=== PATIENT | female | born 1955 | race Caucasian/White ===

== ENCOUNTER 2020-06-12 18:59 | Inpatient (IN) | payer OTHER ==
[~2020-06-12] VITALS: Ht 152.4 cm; Wt 73.5 kg
[2020-06-12 19:13] VITALS: BP 102/52
[2020-06-12] MEDS ORDERED: WELLBUTRIN XL300 MG PO (19:17)
[2020-06-12] MEDS ORDERED: ZOLOFT100 MG PO (19:17)
[2020-06-12] MEDS ORDERED: CLONAZEPAM 0.50.5 M1 PO (19:17)
[2020-06-12] MEDS ORDERED: BACTRIM DS TAB1 EAC1 PO (19:18)
[2020-06-12 19:20] LABS: URINE BILIRUBIN NEGATIVE (Negative); URINE BLOOD TRACE (Negative); URINE CLARITY CLEAR; URINE COLOR YELLOW; URINE GLUCOSE-RANDOM NEGATIVE (Negative); URINE KETONES NEGATIVE (Negative); URINE LEUKOCYTES-REFLEX TRACE (Negative); URINE NITRITE-REFLEX POSITIVE (Negative); URINE PROTEIN NEGATIVE (Negative); URINE SPECIFIC GRAVITY 1.015 (1.005-1.030); URINE UROBILINOGEN 0.2 E.U./dl (0.2-1.0)
[2020-06-12 19:32] LABS: MUCUS None Seen strn/LPF (None Seen); SQUAMOUS >10 Many /LPF (0-3); URINE RBC 0-2 Rare /HPF (0-2); URINE WBC-REFLEX 6-15 Few /HPF (0-5)
[2020-06-12 19:32] LABS: HEMATOCRIT 33.1 % (37.0-47.0); HEMOGLOBIN 11.6 gm/dL (12.0-15.0); MCHC 35.1 g/dL (28.0-37.0); MCV 85.5 fL (80.0-100.0); MPV 9.5 fl. (7.2-11.1); NUCLEATED RBCS 0 /100WBC; PLATELET COUNT* 88 thou/uL (150-400); RBC 3.88 mil/uL (4.20-5.00); RDW-CV 14.2 % (10.5-14.5)
[2020-06-12 19:33] LABS: BACTERIA-REFLEX >30 Many /HPF (None Seen); CASTS None Seen /LPF (None Seen); CRYSTALS None Seen /LPF (None Seen)
[2020-06-12 19:41] LABS: CALCIUM 7.7 mg/dL (8.5-10.1); CREATININE 1.5 mg/dL (0.6-1.3); POTASSIUM 3.2 mmol/L (3.5-5.1)
[2020-06-12 19:45] LABS: ALBUMIN 2.8 g/dL (3.4-5.0); TOTAL BILIRUBIN 1.1 mg/dL (<0.1-1.0); TOTAL PROTEIN 5.6 g/dL (6.4-8.2)
[2020-06-12 20:20] LABS: ABSOLUTE LYMPHOCYTES 0.5 thou/uL (0.8-5.3); ABSOLUTE MONOCYTES 0.3 thou/uL (0.0-1.2); ABSOLUTE NEUTROPHILS 5.2 thou/uL (1.6-8.1); ATYPICAL LYMPHS 2 %
[2020-06-12 20:21] LABS: PLATELET ESTIMATE DECREASED
--- NOTE | 2020-06-12 23:30 | NUR ---
LEVOPHED TITRATED TO MAINTAIN BLOOD PRESSURE MAP ABOVE 65. CURRENTLY TITRATED TO 8MCGS/MIN
[2020-06-12 23:46] VITALS: BP 110/60
--- NOTE | 2020-06-12 23:47 | NUR ---
PERMISSION TO GIVE INFORMATION TO FAMILY MEMBER, LI (SON). [phone] PERMISSION TO GIVE INFORMATION TO FAMILY MEMBER, JOE TARIK [phone]
[2020-06-13] VITALS (78 sets, daily range): BP systolic 79–117; BP diastolic 40–71
--- NOTE | 2020-06-13 07:59 | NUR ---
RECEIVED REPORT FROM STRAND BUNCHER FINE WIRENEVA VILLALTA. PATIENT BROUGHT TO UNIT AROUND 0015. PATIENT ORIENTED TO UNIT, ROOM, BED, CALL-LIGHT, AND HOSPITAL POLICY. ASSESSMENTS COMPLETED CHARTED. CARDIAC MONITORING IN PLACE. PATIENT ON LEVOPHED DRIP, TITRATED TO MAINTAIN MAP ABOVE 65. BED LOCKED AND IN LOWEST POSITION. FALL PRECAUTIONS IN PLACE FOR PATIENT SAFETY. CLWR.
[2020-06-13 08:25] LABS: ALBUMIN 2.1 g/dL (3.4-5.0); CALCIUM 6.6 mg/dL (8.5-10.1); CREATININE 1.5 mg/dL (0.6-1.3); DIRECT BILIRUBIN 1.1 mg/dL (<0.1-0.3); MAGNESIUM 1.1 mg/dL (1.8-2.4); PHOSPHORUS* 2.6 mg/dL (2.5-4.9); POTASSIUM 3.5 mmol/L (3.5-5.1); TOTAL BILIRUBIN 1.4 mg/dL (<0.1-1.0); TOTAL PROTEIN 4.6 g/dL (6.4-8.2)
[2020-06-13 08:53] LABS: APTT 37.3 Seconds (25.0-31.3); INR 1.3
--- NOTE | 2020-06-13 09:34 | EKG ---
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
--- NOTE | 2020-06-13 09:57 | NUR ---
7330 ASSUMED CARE OF PATIENT. PLEASE SEE DOCUMENTED ASSESSMENT.PT C/O BACK AND GENERALIZED PAIN. DR FAUSTIN TO SEE PATIENT.
[2020-06-13 14:21] LABS: MAGNESIUM 2.7 mg/dL (1.8-2.4); POTASSIUM 4.3 mmol/L (3.5-5.1)
--- NOTE | 2020-06-13 14:57 | NUR ---
ICU rounds: IV fluids and ABX. GI w/up for elevated LFTs. Pain mgmt. Pt is A&O. Resides at home with her girlfriend. Independent. No DME. No hx of HH or SNF. Med Assist to screen for [facility]. No needs anticipated. Following
--- NOTE | 2020-06-13 14:59 | NUR ---
ICU rounds: Iv fluids and abx. Pain management. Pt is A&O. Resides at home with her girlfriend. Independent. No DME. No hx of HH or SNF. Goal is home at dc. Med Assist to eval for [facility]. No needs anticipated.
--- NOTE | 2020-06-13 18:40 | NUR ---
PATIENT NOT PROGRESSING TOWARDS GOALS. LEVOPHED UNABLE TO BE TITRATED SIGNIFICANTLY. ON ROOM AIR. AFEBRILE.POOR APPETITE BUT TAKING FLUIDS. VAUGHN PLACED THIS MORNING FOR RETENTION. SISTER HAS VISITED.
--- NOTE | 2020-06-13 23:31 | NUR ---
RECEIVED REPORT AND ASSUMED CARE AT 1900. TEMP ELEVATED OTHERWISE VSS, ICU MONITORING IN PLACE. PT REPORTS PAIN/ NAUSEA/ TEMP 102.3. PRN MEDICATION ADMIN PER ORDERS. TEMP RECHECK 100.7 AND THEN 99.2. ASSESSMENT COMPLETE CHARTED. BED LOCKED IN LOWEST POSITION, CALL LIGHT WITHIN REACH, BED ALARM ON.
[2020-06-14] VITALS (80 sets, daily range): BP systolic 81–118; BP diastolic 40–88
[2020-06-14 04:52] LABS: HEMATOCRIT 30.4 % (37.0-47.0); HEMOGLOBIN 10.5 gm/dL (12.0-15.0); MCH 29.8 pg (26.0-34.0); MCHC 34.6 g/dL (28.0-37.0); MCV 86.1 fL (80.0-100.0); MPV 10.7 fl. (7.2-11.1); RBC 3.53 mil/uL (4.20-5.00); RDW-CV 15.4 % (10.5-14.5); WBC 14.3 thou/uL (4.0-11.0)
[2020-06-14 05:18] LABS: CREATININE 0.9 mg/dL (0.6-1.3); MAGNESIUM 2.2 mg/dL (1.8-2.4); POTASSIUM 4.2 mmol/L (3.5-5.1); TOTAL BILIRUBIN 0.6 mg/dL (<0.1-1.0); TOTAL PROTEIN 4.8 g/dL (6.4-8.2)
--- NOTE | 2020-06-14 17:25 | NUR ---
PATIENT NOT PROGRESSING WELL TOWARDS GOALS. UNABLE TO WEAN LEVOPHED AT ALL THIS SHIFT. INCREASED O2 TO 4 LITERS DUE TO INCREASED SHORTNESS OF BREATHING, TACHYPNIA, AND DROP IN SATS TO 85-87% SUSTAINED. PATIENT HAS PAIN MOST OF SHIFT, STARTING TO BECOME BETTER CONTROLLED WITH SCHEUDLED TRAMADOL. REMAINS FEBRILE BUT SLOWLY DECREASING. FRIEND VISITED TODAY AND SON CALLED FOR UPDATE. PATIENT UP IN CHAIR EATING DINNER AT THIS TIME. POOR APPETITE MOST OF TODAY. BED IN LOWEST POSITION, CALL LIGHT IN REACH, WALL WORKER IN PLACE.
[2020-06-14 20:53] LABS: PCO2 31.1 mmHg (35.0-45.0); pH 7.326 (7.340-7.450)
[2020-06-14 20:55] LABS: PO2 57.5 mmHg (75.0-100.0)
[2020-06-15] VITALS (96 sets, daily range): BP systolic 73–143; BP diastolic 39–107
[2020-06-15 00:33] LABS: CALCIUM 6.2 mg/dL (8.5-10.1); CREATININE 0.9 mg/dL (0.6-1.3); MAGNESIUM 1.8 mg/dL (1.8-2.4); POTASSIUM 3.9 mmol/L (3.5-5.1)
--- NOTE | 2020-06-15 00:34 | NUR ---
PATIENT'S OXYGEN DEMAND INCREASING WELL RESPIRATORY RATE. DR. LOPEZ NOTIFIED, ORDERS RECEIVED FOR ABG AND CHEST XRAY. RESULTS COMMUNICATED TO HER, WELL UPDATE ON PTS WORSENING RESPIRATORY STATUS. ORDERS TO INTUBATE RECEIVED AND CARRIED OUT BY DR. SUE. SINCE INTUBATION, HR HAS BEEN 140-150'S, DR. LOPEZ NOTIFIED AGAIN. ORDERS RECEIVED FOR DIGOXIN IVPUSH ONE TIME. ADMINISTERED PER ORDERS. PATIENT RESTING COMFORTABLY WITH SEDATION INFUSING.
[2020-06-15 01:00] LABS: BE -14.4 mmol/L (-2 to +3); PO2 89.3 mmHg (75.0-100.0)
[2020-06-15 01:02] LABS: PCO2 65.9 mmHg (35.0-45.0); pH 7.022 (7.340-7.450)
[2020-06-15 02:41] LABS: BE -10.1 mmol/L (-2 to +3); PCO2 38.9 mmHg (35.0-45.0); PO2 70.7 mmHg (75.0-100.0)
[2020-06-15 02:42] LABS: pH 7.245 (7.340-7.450)
[2020-06-15 06:53] LABS: HEMATOCRIT 28.5 % (37.0-47.0); HEMOGLOBIN 9.8 gm/dL (12.0-15.0); MCH 29.8 pg (26.0-34.0); MCHC 34.4 g/dL (28.0-37.0); MCV 86.5 fL (80.0-100.0); MPV 9.6 fl. (7.2-11.1); RBC 3.3 mil/uL (4.20-5.00); RDW-CV 15.5 % (10.5-14.5); WBC 16.8 thou/uL (4.0-11.0)
[2020-06-15 07:10] LABS: ALBUMIN 1.6 g/dL (3.4-5.0); MAGNESIUM 1.8 mg/dL (1.8-2.4); POTASSIUM 4.2 mmol/L (3.5-5.1); TOTAL BILIRUBIN 0.6 mg/dL (<0.1-1.0); TOTAL PROTEIN 4.4 g/dL (6.4-8.2)
[2020-06-15 07:14] LABS: CALCIUM 5.7 mg/dL (8.5-10.1)
--- NOTE | 2020-06-15 07:32 | NUR ---
PATIENT PROGRESSING TOWARDS GOALS: PATIENT REMAINS ON VENT, SETTINGS PER PULM. PATIENT OPENING EYES SPONTANEOUSLY, NOT ATTEMPTING TO PULL AT TUBES. OBEYING COMMANDS AND APPEARS COMFORTABLE. UPDATE ON PATIENT STATUS GIVEN TO SON-LI. BP STABLE ON LEVOPHED.
--- NOTE | 2020-06-15 11:04 | CON ---
[address] [address] CONSULTATION Name: SAUNDRA ROMANO Room: [address] ADM IN M.R.#: [id number] Admission: 06/12/20 Attend Phys: Lanre Cuevas MD Discharge: Date of : 57 Report #: [id number] THIS REPORT FOR: //name// cc: Jean Carlos Wakefield MD, William MD ~ THIS REPORT FOR: //name// CC: Lanre Wakefield DATE OF SERVICE: 06/15/2020 CARDIOLOGY CONSULTATION HISTORY OF PRESENT ILLNESS: The patient is a 65-year-old white female who I was asked to see in the hospital today after she was noted to be tachycardic. The history is obtained from the chart. Unfortunately, there are no family members available. The patient has never been here to [place] before. She is currently intubated and sedated. According to the chart, the patient was brought to the Emergency Room 3 days ago. She apparently was diagnosed with a UTI 2 weeks ago and was prescribed Bactrim. On the day of admission; however, she noticed some back and abdominal discomfort and some nausea. She was admitted to a monitored bed. Because of respiratory insufficiency, the patient was electively intubated last night and placed on the ventilator. Because of low blood pressure, the patient is on IV Levophed. Because of tachycardia, I was asked to see her for further evaluation and treatment. At this time, the patient denies any chest pain, nausea, or lightheadedness. PAST MEDICAL HISTORY: She apparently has had previous appendectomy and cholecystectomy. MEDICATIONS: On admission included sertraline, Wellbutrin, clonazepam, and she has been on Bactrim. ALLERGIES: SHE HAD ALLERGY TO AMOXICILLIN. FAMILY HISTORY: Noncontributory. REVIEW OF SYSTEMS: No history of stroke, asthma, GI bleeding, liver disease, kidney disease or cancer. PHYSICAL EXAMINATION: GENERAL: Revealed a middle-aged female lying in bed. She is on a ventilator. She was awake. VITAL SIGNS: On IV Levophed were only 90 systolic, pulse is 110 and regular. temperature is [address]. [place] [address] CONSULTATION Name: SAUNDRA ROMANO Room: [address]#: [id number] Admission: 06/12/20 Attend Phys: Lanre Cuevas MD Discharge: Date of : 57 Report #: [id number] HEENT: She was anicteric. Conjunctivae are pink. Mucous membranes are moist. CHEST: Clear to auscultation. CARDIOVASCULAR: Regular, tachycardia. No significant murmurs. ABDOMEN: Soft. EXTREMITIES: Had no edema. SKIN: Cool and dry. NEUROLOGIC: Nonfocal. IMAGING STUDIES: Her ECG showed what appears to represent sinus tachycardia with a left bundle branch block. Her workup since admission, the patient had a portable chest x-ray on admission 3 days ago that showed normal heart size and clear lung diego. LABORATORY DATA: Sodium 138, BUN 13, creatinine 1.0. Her alkaline phosphatase is 212, SGPT 71, GGTP 389, bilirubin 0.6, albumin is 1.6. TSH 1.1. White blood cell count 16.8, hemoglobin on admission 11.6 and it is now 9.8. The patient had urine culture on admission with 60,000 gram-negative rods. IMPRESSION AND RECOMMENDATIONS: 1. Urosepsis. The patient is on IV pressors. 2. Elevated liver function studies. 3. Respiratory failure. The patient is intubated. 4. Tobacco abuse. 5. Anxiety disorder. 6. Elevated liver function studies. Possibly related to sepsis. 7. Anemia. No evidence of bleeding. <ELECTRONICALLY SIGNED> By: Misael Kumar MD, [facility] 06/15/20 1104 0833 [id number] Kumar MD, FAC /nt
[2020-06-15 11:54] LABS: BE -7.5 mmol/L (-2 to +3); PCO2 49.8 mmHg (35.0-45.0)
[2020-06-15 11:56] LABS: pH 7.223 (7.340-7.450)
[2020-06-15 11:57] LABS: PO2 47.9 mmHg (75.0-100.0)
--- NOTE | 2020-06-15 12:54 | NUR ---
PT DESATTING TO 82-88% ON VENT, FIO2 100%. DR ALLEN NOTIFIED, PEEP INCREASED TO 12, RATE TO 22. PROPOFOL DRIP ADDED FOR SEDATION. 2 AMPS OF HCO3 BOLUS GIVEN.
[2020-06-15 13:19] LABS: BE -6.3 mmol/L (-2 to +3); PCO2 48.2 mmHg (35.0-45.0)
[2020-06-15 13:22] LABS: pH 7.253 (7.340-7.450)
[2020-06-15 13:23] LABS: PO2 43.4 mmHg (75.0-100.0)
[2020-06-15 16:07] LABS: BE -4.8 mmol/L (-2 to +3); PCO2 42.3 mmHg (35.0-45.0); PO2 61.4 mmHg (75.0-100.0); pH 7.315 (7.340-7.450)
--- NOTE | 2020-06-15 19:31 | NUR ---
VENT SUPPORT CHANGED THROUGHOUT THE DAY PER DR ALLEN, LATEST PEEP AT 14, RATE 22, TV 500 AND FIO2 100%, TOLERATING WELL. 5 AMPS OF BICARB ADMINISTERED THROUGHOUT THE DAY. WAS ABLE TO TURN LEVOPHED OFF AT 1530, CARO AT 200 MCG/MIN. HR DOWN TO 90s. TMAX 103.5 THIS SHIFT, COLD COMPRESSION AND COLD WATER LAVAGE DONE, TEMP DOWN TO 99.5. COVID PCR SENT THIS EVENING PER DR LOPEZ, STARTED HER ON ENHANCED PREACAUTIONS. JOE (SISTER) UPDATED.
[2020-06-16] VITALS (57 sets, daily range): BP systolic 68–163; BP diastolic 38–78
[2020-06-16 05:18] LABS: PCO2 42.4 mmHg (35.0-45.0); PO2 87.2 mmHg (75.0-100.0); pH 7.375 (7.340-7.450)
[2020-06-16 06:23] LABS: ABSOLUTE BASOPHILS 0.2 thou/uL (0.0-0.2); ABSOLUTE EOSINOPHILS 0.1 thou/uL (0.0-0.7); ABSOLUTE LYMPHOCYTES 2.4 thou/uL (0.8-5.3); ABSOLUTE MONOCYTES 0.9 thou/uL (0.0-1.2); ABSOLUTE NEUTROPHILS 9.7 thou/uL (1.6-8.1); BASOPHILS 1.2 %; EOSINOPHILS 0.8 %; HEMATOCRIT 30.7 % (37.0-47.0); HEMOGLOBIN 10.7 gm/dL (12.0-15.0); LYMPHOCYTES 18.3 %; MCH 29.7 pg (26.0-34.0); MCHC 34.7 g/dL (28.0-37.0); MCV 85.4 fL (80.0-100.0); MONOCYTES 6.4 %; NUCLEATED RBCS 0 /100WBC; PLATELET COUNT* 96 thou/uL (150-400); POLYS 73.3 %; RDW-CV 15.5 % (10.5-14.5); WBC 13.3 thou/uL (4.0-11.0)
[2020-06-16 06:37] LABS: INR 1.2; PROTIME 11.9 Seconds (9.20-11.50)
[2020-06-16 06:41] LABS: ALBUMIN 1.2 g/dL (3.4-5.0); MAGNESIUM 1.6 mg/dL (1.8-2.4); POTASSIUM 3.2 mmol/L (3.5-5.1); TOTAL BILIRUBIN 1.5 mg/dL (<0.1-1.0); TOTAL PROTEIN 4.2 g/dL (6.4-8.2)
[2020-06-16 06:43] LABS: CALCIUM 5.5 mg/dL (8.5-10.1)
[2020-06-16 13:41] LABS: BE -6.7 mmol/L (-2 to +3); PCO2 45.6 mmHg (35.0-45.0); PO2 98.7 mmHg (75.0-100.0)
[2020-06-16 13:43] LABS: pH 7.263 (7.340-7.450)
[2020-06-16 13:54] LABS: ALBUMIN 1.9 g/dL (3.4-5.0); CREATININE 1.1 mg/dL (0.6-1.3); PHOSPHORUS* 2.2 mg/dL (2.5-4.9); POTASSIUM 4.1 mmol/L (3.5-5.1)
[2020-06-16 13:57] LABS: CALCIUM 5.6 mg/dL (8.5-10.1)
[2020-06-16 18:09] LABS: BE -0.8 mmol/L (-2 to +3); PCO2 39.7 mmHg (35.0-45.0); pH 7.398 (7.340-7.450)
[2020-06-16 18:11] LABS: HEMATOCRIT 30.6 % (37.0-47.0); HEMOGLOBIN 10.7 gm/dL (12.0-15.0); MCH 29.5 pg (26.0-34.0); MCHC 34.9 g/dL (28.0-37.0); MCV 84.6 fL (80.0-100.0); MPV 9.9 fl. (7.2-11.1); NUCLEATED RBCS 0 /100WBC; PLATELET COUNT* 148 thou/uL (150-400); RBC 3.61 mil/uL (4.20-5.00); RDW-CV 15.7 % (10.5-14.5)
[2020-06-16 18:12] LABS: PO2 265.8 mmHg (75.0-100.0)
[2020-06-16 18:26] LABS: CALCIUM 6.6 mg/dL (8.5-10.1); CREATININE 1.1 mg/dL (0.6-1.3); POTASSIUM 4.1 mmol/L (3.5-5.1)
[2020-06-16 18:37] LABS: ABSOLUTE LYMPHOCYTES 0.8 thou/uL (0.8-5.3); ABSOLUTE MONOCYTES 0.8 thou/uL (0.0-1.2); ABSOLUTE NEUTROPHILS 12.3 thou/uL (1.6-8.1); LARGE PLATELETS OCCASIONAL
[2020-06-16 18:38] LABS: ANISOCYTOSIS Occasional; PLATELET ESTIMATE ADEQUATE
[2020-06-17 00:02] VITALS: BP 160/73
[2020-06-17 02:02] LABS: MAGNESIUM 1.9 mg/dL (1.8-2.4); POTASSIUM 3.2 mmol/L (3.5-5.1)
[2020-06-17 02:56] VITALS: BP 148/78
[2020-06-17 03:30] VITALS: BP 112/54
[2020-06-17 05:38] LABS: ABSOLUTE BASOPHILS 0.1 thou/uL (0.0-0.2); ABSOLUTE MONOCYTES 0.8 thou/uL (0.0-1.2); ABSOLUTE NEUTROPHILS 8.4 thou/uL (1.6-8.1); BASOPHILS 0.6 %; HEMATOCRIT 30.9 % (37.0-47.0); HEMOGLOBIN 10.7 gm/dL (12.0-15.0); LYMPHOCYTES 17.7 %; MCH 29.3 pg (26.0-34.0); MCHC 34.8 g/dL (28.0-37.0); MCV 84.2 fL (80.0-100.0); MONOCYTES 6.9 %; MPV 10.2 fl. (7.2-11.1); NUCLEATED RBCS 0 /100WBC; PLATELET COUNT* 121 thou/uL (150-400); POLYS 74.8 %; RBC 3.67 mil/uL (4.20-5.00); RDW-CV 15.6 % (10.5-14.5); WBC 11.2 thou/uL (4.0-11.0)
[2020-06-17 05:57] LABS: ALBUMIN 2.6 g/dL (3.4-5.0); CALCIUM 6.8 mg/dL (8.5-10.1); CREATININE 0.9 mg/dL (0.6-1.3); MAGNESIUM 1.9 mg/dL (1.8-2.4); POTASSIUM 3.4 mmol/L (3.5-5.1); TOTAL BILIRUBIN 2.5 mg/dL (<0.1-1.0); TOTAL PROTEIN 5.9 g/dL (6.4-8.2)
[2020-06-17 06:23] LABS: PHOSPHORUS* 2.2 mg/dL (2.5-4.9)
--- NOTE | 2020-06-17 07:36 | NUR ---
ASSESSMENTS CHARTED. PATIENT REMAINS INTUBATED ON VENTILATOR WITH HIGH LEVELS OF SEDATION RUNNING. PATIENT'S CARDIAC STATUS BECOMING INCREASINGLY UNSTABLE OVER THE SHIFT. SPOKE WITH CARDIOLOGY AND INTERNAL MED ABOUT THE ISSUE. ORDERS RECIEVED. PATIENT REMIANS BRADYCARDIC DESPITE INTERVENTION. YOSEF WARMER APPLIED WHEN TEMPERATURE FOUND TO BE 96.0 DEGREES. PATIENT REMAINS IN CRITICAL CONDITION. DIURESING WELL, LASIX GTT INFUSING PER ORDERS.
[2020-06-17 08:10] LABS: BE 6.2 mmol/L (-2 to +3); pH 7.485 (7.340-7.450)
[2020-06-17 08:15] LABS: PO2 232.6 mmHg (75.0-100.0)
--- NOTE | 2020-06-17 10:01 | NUR ---
NUTRITION: if TF warranted, recommend Jevity 1.5 @ goal rate 50mL/hr. See RD Assessment Form for details.
--- NOTE | 2020-06-17 10:43 | EKG ---
[place] [address] ELECTROCARDIOGRAM REPORT Name: ZHEN ROMANOLIS Room: [address] ADM IN .R.#: [id number] Admission: 06/12/20 Attend Phys: Lanre Cuevas, Discharge: Date of : 57 Date of Service: 06/15/20 0018 Report #: [id number] THIS REPORT FOR: //name// [facility] Test Date: 2020-06-15 Test Time: 00:18:02 Pat Name: SAUNDRA ROMANO Department: Room: [address] Gender: F Marking Clerk: NAHOMY : 1955 Requested By: Lanre Cuevas Order Number: [id number] Courtney MD: Misael Kumar Measurements Intervals [place] Rate: 151 P: 0 [place]: QRS: -27 QRSD: 155 T: 123 QT: 350 QTc: 555 Interpretive Statements Sinus tachycardia Left bundle branch block Compared to ECG 06/12/2020 22:04:58 rate has increased Electronically Signed On 06-17-2020 10:43:18 CDT by Misael Kumar [email or web address] <ELECTRONICALLY SIGNED> By: Misael Kumar MD, [facility] 06/17/20 1043 0018 0018 Misael Kumar MD, [facility] /EPI
--- NOTE | 2020-06-17 10:54 | EKG ---
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
--- NOTE | 2020-06-17 10:56 | EKG ---
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 Part Time: FRANCISCO : 1955 Requested By: Misael Kumar Order Number: [id number] Courtney MD: Misael Kumar Measurements Intervals [place] Rate: 46 P: 25 MA: 157 QRS: -18 QRSD: 165 T: 78 QT: 574 QTc: 503 Interpretive Statements Sinus bradycardia Left bundle branch block Compared to ECG 06/16/2020 23:39:44 Sinus arrhythmia no longer present Electronically Signed On 06-17-2020 10:56:38 CDT by Misael Kumar [email or web address] <ELECTRONICALLY SIGNED> By: Misael Kumar MD, [facility] 06/17/20 1056 0519 0519 Misael Kumar MD, [facility] /EPI
--- NOTE | 2020-06-17 13:15 | 2DMMODE ---
[place] [address] 2 D/M-MODE ECHOCARDIOGRAM Name: SAUNDRA ROMANO Room: [address] ADM IN .R.#: [id number] Admission: 06/12/20 Attend Phys: Lanre Cuevas, Discharge: Date of : 57 Date of Service: 06/17/20 1314 Report #: [id number] THIS REPORT FOR: cc: Jean Carlos Wakefield MD, William MD [place], Michael J. MD [facility] ~ APPROVED REPORT Study performed: 06/17/2020 09:46:07 EXAM: Comprehensive 2D, Doppler, and color-flow Echocardiogram Patient Location: In-Patient Room #: [facility] Status: routine BSA: 1.75 HR: 86 bpm BP: 101/55 mmHg Rhythm: NSR Other Information Study Quality: Good Indications Sepsis Dyspnea 2D Dimensions IVSd: 12.75 (7-11mm) LVOT Diam: 19.94 (18-24mm) LVDd: 42.07 mm PWd: 11.25 (7-11mm) Ascending Ao: 26.16 (22-36mm) LVDs: 23.75 (25-40mm) Aortic Root: 29.98 mm Volumes Left Atrial Volume (Systole) LA ESV Index: 16.30 mL/m2 Aortic Valve AoV Peak Fer.: 1.57 m/s AO Peak Gr.: 9.87 mmHg LVOT Max P.95 mmHg AO Mean Gr.: 5.35 mmHg LVOT Mean P.24 mmHg LVOT Max V: 1.11 m/s AO V2 VTI: 22.67 cm LVOT Mean V: 0.68 m/s GISSEL (VTI): 2.51 cm2 LVOT V1 VTI: 18.20 [place] [address] 2 D/M-MODE ECHOCARDIOGRAM Name: SAUNDRA ROMANO Room: [address] IN M.R.#: [id number] Admission: 06/12/20 Attend Phys: Lanre Cuevas, Discharge: Date of : 57 Date of Service: 06/17/20 1314 Report #: [id number] Mitral Valve E/A Ratio: 0.90 MV Decel. Time: 282.47 ms MV E Max Fer.: 0.52 m/s MV PHT: 81.92 ms MVA (PHT): 2.69 cm2 TDI E/Lateral E': 7.43 E/Medial E': 8.67 Medial E' Fer.: 0.06 m/s Lateral E' Fer.: 0.07 m/s Pulmonary Valve PV Peak Fer.: 1.21 m/s PV Peak Gr.: 5.86 mmHg Tricuspid Valve RAP Estimate: 5.00 mmHg TR Peak Gr.: 17.88 mmHg RVSP: 22.00 mmHg PA Pressure: 22.00 mmHg Left Ventricle The left ventricle is normal size. There is left ventricular systolic dyssynergy noted consistent with bundle branch block. Mild concentric left ventricular hypertrophy. Left ventricular systolic function is normal. LVEF is 55-60%. Transmitral Doppler flow pattern suggests impaired LV relaxation. Right Ventricle The right ventricle is normal size. The right ventricular systolic function is normal. Atria The left atrium size is normal. The right atrium size is normal. Aortic Valve The aortic valve is normal in structure. No aortic regurgitation is present. There is no aortic valvular stenosis. Mitral Valve The mitral valve is normal in structure. Trace mitral regurgitation. No evidence of mitral valve stenosis. Tricuspid Valve The tricuspid valve is normal in [place] [address] 2 D/M-MODE ECHOCARDIOGRAM Name: SAUNDRA ROMANO Room: [address] IN [facility]#: [id number] Admission: 06/12/20 Attend Phys: Lanre Cuevas, Discharge: Date of : 57 Date of Service: 06/17/20 1314 Report #: [id number] regurgitation. No pulmonary hypertension. Pulmonic Valve The pulmonary valve is normal in structure. There is no pulmonic valvular regurgitation. Great Vessels The aortic root is normal in size. IVC is normal in size and collapses >50% with inspiration. Pericardium There is no pericardial effusion. <Conclusion> The left ventricle is normal size. Mild concentric left ventricular hypertrophy. Left ventricular systolic function is normal. LVEF is 55-60%. Transmitral Doppler flow pattern suggests impaired LV relaxation. There is left ventricular systolic dyssynergy noted consistent with bundle branch block. Trace mitral regurgitation. Trace tricuspid regurgitation. No pulmonary hypertension. <ELECTRONICALLY SIGNED> By: Golden García MD, FACC 06/17/20 1314 13 13 Golden García MD, FACC /INF
--- NOTE | 2020-06-17 14:36 | NUR ---
ICU rounds: On pressors. Start TF. Febrile, on IVABX. Per Med Assist, Pt does not qualify for [facility] at this time.
[2020-06-17 15:01] LABS: BE 5.7 mmol/L (-2 to +3); PCO2 43.9 mmHg (35.0-45.0); pH 7.456 (7.340-7.450)
[2020-06-17 15:05] LABS: PO2 144.7 mmHg (75.0-100.0)
[2020-06-17 15:11] LABS: CALCIUM 6.9 mg/dL (8.5-10.1); POTASSIUM 3.6 mmol/L (3.5-5.1)
[2020-06-17 22:55] VITALS: BP 111/57
[2020-06-18] VITALS (37 sets, daily range): BP systolic 82–141; BP diastolic 44–76
[2020-06-18 05:56] LABS: HEMATOCRIT 25.5 % (37.0-47.0); HEMOGLOBIN 8.9 gm/dL (12.0-15.0); NUCLEATED RBCS 0 /100WBC
[2020-06-18 05:58] LABS: ABSOLUTE LYMPHOCYTES 1.4 thou/uL (0.8-5.3); ABSOLUTE MONOCYTES 0.3 thou/uL (0.0-1.2); ABSOLUTE NEUTROPHILS 3.6 thou/uL (1.6-8.1); BASOPHILS 0.3 %; LYMPHOCYTES 27.3 %; MCH 29.5 pg (26.0-34.0); MCHC 34.8 g/dL (28.0-37.0); MCV 84.8 fL (80.0-100.0); MONOCYTES 4.7 %; MPV 9.7 fl. (7.2-11.1); PLATELET COUNT* 165 thou/uL (150-400); POLYS 67.7 %; RBC 3.01 mil/uL (4.20-5.00); RDW-CV 15.4 % (10.5-14.5); WBC 5.3 thou/uL (4.0-11.0)
[2020-06-18 06:10] LABS: ALBUMIN 2.2 g/dL (3.4-5.0); CALCIUM 6.5 mg/dL (8.5-10.1); CREATININE 0.8 mg/dL (0.6-1.3); MAGNESIUM 2.3 mg/dL (1.8-2.4); PHOSPHORUS* 2.8 mg/dL (2.5-4.9); POTASSIUM 3.7 mmol/L (3.5-5.1); TOTAL PROTEIN 5.8 g/dL (6.4-8.2)
--- NOTE | 2020-06-18 06:33 | NUR ---
VITALS STABLE,AFEBRILE. ABLE TO TITRATE NEOSYNEPHRINE OFF, PT STILL ON DOPAMINE GTT. ABLE TO TITRATE FENTANYL AND VERSED DOWN WITH PRN PUSHES. NO BM, UOP 850CC. OTHERWISE UNEVENTFUL NIGHT. REMAINS IN ENHANCED PRECAUTIONS. Q2 TURNS FOR SKIN INTEGRITY. TF REMAINS RUNNING AT 20ML/HR.
[2020-06-18 07:54] LABS: BE 2.8 mmol/L (-2 to +3); PCO2 47.7 mmHg (35.0-45.0)
[2020-06-18 07:56] LABS: PO2 124.1 mmHg (75.0-100.0)
[2020-06-18 13:02] LABS: CALCIUM 6.5 mg/dL (8.5-10.1); CREATININE 0.9 mg/dL (0.6-1.3); POTASSIUM 3.8 mmol/L (3.5-5.1)
--- NOTE | 2020-06-18 13:51 | NUR ---
ICU rounds: On vent, attempted weaning trial, not ready. Tube feeds. Covid negative.
[2020-06-19] VITALS (21 sets, daily range): BP systolic 123–148; BP diastolic 58–74
[2020-06-19 05:17] LABS: HEMATOCRIT 26.5 % (37.0-47.0); HEMOGLOBIN 9.2 gm/dL (12.0-15.0); MCH 29.5 pg (26.0-34.0); MCHC 34.8 g/dL (28.0-37.0); MCV 84.7 fL (80.0-100.0); MPV 9.9 fl. (7.2-11.1); RBC 3.13 mil/uL (4.20-5.00); RDW-CV 15.2 % (10.5-14.5); WBC 6.8 thou/uL (4.0-11.0)
[2020-06-19 05:39] LABS: ALBUMIN 2.6 g/dL (3.4-5.0); CALCIUM 7.2 mg/dL (8.5-10.1); CREATININE 0.7 mg/dL (0.6-1.3); MAGNESIUM 2.4 mg/dL (1.8-2.4); POTASSIUM 3.9 mmol/L (3.5-5.1); TOTAL BILIRUBIN 0.9 mg/dL (<0.1-1.0); TOTAL PROTEIN 6.2 g/dL (6.4-8.2)
--- NOTE | 2020-06-19 05:41 | NUR ---
OFF PRESSORS. ON FENTANYL GTT. PRECEDEX GTT ON AND OFF TOLERATED. VENT SETTING CHANGE PER PULMONARY. TF ON HOLD SINCE MIDNIGHT FOR HIGH RESIDUALS. RECEIVED WATER BOLUSES. OTHERWISE UNEVENTFUL NIGHT. UOP 2000CC, NO BM. Q2 TURNS FOR SKIN INTEGRITY.
[2020-06-19 05:51] LABS: BE 5.8 mmol/L (-2 to +3); PCO2 46.2 mmHg (35.0-45.0); pH 7.439 (7.340-7.450)
[2020-06-19 05:58] LABS: PO2 126.9 mmHg (75.0-100.0)
--- NOTE | 2020-06-19 13:48 | NUR ---
ICU rounds: Remains on vent, no weaning trial planned. Pt not tolerating TF, plan to restart at 4pm today. Off pressors.
--- NOTE | 2020-06-19 18:27 | NUR ---
PATIENT SOMEWHAT PROGRESSING TOWARDS GOALS. ABLE TO SWITCH VENT SETTINGS TO ASSIST CONTROL FROM PRESSURE CONTROL, LOWERED O2 DEMANDS. PATIENT VERY DIFFICULT TO KEEP SEDATED DESPITE VERSED GTT STARTING AND REMAINING ON FENTANYL GTT AND PRECEDEX GTT ALL MAXED. FRIEND VISISTED TODAY, SON UPDATED. POSSIBLE WEANING TRIAL TOMORROW. RESUMED TUBE FEEDING THIS EVENING, WILL MONITOR RESIDUALS AND DETERMINE IF SHE WILL TOLERATE POST REGLAN AND RELASTOR ADMINISTRATION. BED IN LOWEST POSITION, CALL LIGHT IN REACH, MAKEUP EDITOR IN PLACE.
[2020-06-20] VITALS (35 sets, daily range): BP systolic 110–186; BP diastolic 48–80
[2020-06-20 04:40] LABS: ABSOLUTE LYMPHOCYTES 1.8 thou/uL (0.8-5.3); ABSOLUTE MONOCYTES 0.3 thou/uL (0.0-1.2); ABSOLUTE NEUTROPHILS 3.9 thou/uL (1.6-8.1); BASOPHILS 0.2 %; EOSINOPHILS 0.1 %; HEMATOCRIT 23.8 % (37.0-47.0); HEMOGLOBIN 8.2 gm/dL (12.0-15.0); LYMPHOCYTES 30.5 %; MCH 29.3 pg (26.0-34.0); MCHC 34.5 g/dL (28.0-37.0); MCV 84.9 fL (80.0-100.0); MONOCYTES 4.2 %; MPV 9.5 fl. (7.2-11.1); NUCLEATED RBCS 0 /100WBC; PLATELET COUNT* 149 thou/uL (150-400); RDW-CV 15.1 % (10.5-14.5)
[2020-06-20 05:06] LABS: ALBUMIN 2.2 g/dL (3.4-5.0); CALCIUM 6.8 mg/dL (8.5-10.1); CREATININE 0.7 mg/dL (0.6-1.3); MAGNESIUM 2.1 mg/dL (1.8-2.4); POTASSIUM 3.4 mmol/L (3.5-5.1); TOTAL BILIRUBIN 0.8 mg/dL (<0.1-1.0); TOTAL PROTEIN 5.4 g/dL (6.4-8.2)
--- NOTE | 2020-06-20 08:58 | NUR ---
0730 ASSSUMED CARE OF PATIENT. PLEASE SEE DOCUMENTED ASSESSMENT. PT CAN FOLLOW COMMANDS EVEN WITH SEDATION ON AND NODS HEAD. TUBE FEEDING OF SINCE 0400 FOR VENT WEANING TRIAL
--- NOTE | 2020-06-20 14:50 | NUR ---
ICU rounds: Remains on vent. CT of head today. Med Assist to reach out to son regarding [facility], Pt originally did not qualify, following.
--- NOTE | 2020-06-20 18:19 | NUR ---
PATIENT NOT PROGRESSING TOWARDS GOALS, ABORTED WEANING TRIAL ATTEMPT THIS MORNING DUE TO ANXIETY AND TACHYPNEA. TUBE FEEDING NOT RESUMED UNTIL COMPLETEING CT OF CHEST. RESUMED VERSED DRIP THIS EVENING DUE TO CONTINUED ANXIETY. TUBE FEEDING SHORT OF GOAL AT THIS TIME. SISTER JOE HAS VISITED. SPOKE WITH SON RAMEZ ON PHONE.
[2020-06-21] VITALS (42 sets, daily range): BP systolic 90–164; BP diastolic 41–78
[2020-06-21 05:10] LABS: ABSOLUTE LYMPHOCYTES 2.2 thou/uL (0.8-5.3); ABSOLUTE MONOCYTES 0.3 thou/uL (0.0-1.2); ABSOLUTE NEUTROPHILS 8.3 thou/uL (1.6-8.1); BASOPHILS 0.4 %; EOSINOPHILS 0.3 %; HEMATOCRIT 23.7 % (37.0-47.0); HEMOGLOBIN 8.3 gm/dL (12.0-15.0); LYMPHOCYTES 20.4 %; MCH 29.9 pg (26.0-34.0); MCHC 35.2 g/dL (28.0-37.0); MCV 84.8 fL (80.0-100.0); MONOCYTES 2.6 %; NUCLEATED RBCS 0 /100WBC; PLATELET COUNT* 150 thou/uL (150-400); POLYS 76.3 %; RDW-CV 15.1 % (10.5-14.5); WBC 10.9 thou/uL (4.0-11.0)
[2020-06-21 05:32] LABS: ALBUMIN 1.9 g/dL (3.4-5.0); CALCIUM 6.9 mg/dL (8.5-10.1); CREATININE 0.6 mg/dL (0.6-1.3); MAGNESIUM 1.6 mg/dL (1.8-2.4); PHOSPHORUS* 1.4 mg/dL (2.5-4.9); POTASSIUM 3.6 mmol/L (3.5-5.1); TOTAL BILIRUBIN 0.9 mg/dL (<0.1-1.0); TOTAL PROTEIN 5.4 g/dL (6.4-8.2)
--- NOTE | 2020-06-21 05:40 | NUR ---
ASSUMED CARE AT 1900, ON VENT FIO2 40% AND SEDATION OF VERSED 2MG/HR, FENTANYL AND PRECEDEX MAX DOSE. PT FALLOWED COMMANDS AND SEEN RESTLESS AND TACHYPNIC, VERSED TITRATED UP. NO DISTRESS NOTED. PT BECAME TACHYPNIC WHEN TURNED AND ORAL CARE DONE, VERSED AT MAX DOSE. PT GOT FEVERISH, TYLENOL GIVEN. WITH STIFF EXTRIMITIES AND FOOT DROP NOTED. CONTINUE MONITORING AND TOWARDS CARE. LATEST TEMP 99F. EYE OPENING TO PAIN AND MOVES LOCALIZED PAIN.
--- NOTE | 2020-06-21 08:05 | NUR ---
0730 ASSUMED CARE OF PATIENT. PLEASE SEE DOCUMENTED ASSESSMENT. PT ABLE TO FOLLOW COMMANDSON VENTILATOR WITH SEDATION.
--- NOTE | 2020-06-21 18:02 | NUR ---
PATIENT PROGRESSING TOWARDS GOALS TODAY IN THAT SHE HAS BEEN LESS RESTLESS AND TACHYPNEIC. NO VENTILATOR WEANING TRIAL TODAY. TOLERATING TUBE FEEDINGS BUT NO STOOL TODAY. SISTER HAS VISITED
[2020-06-22] VITALS (24 sets, daily range): BP systolic 96–161; BP diastolic 45–76
[2020-06-22 04:36] LABS: BE -0.2 mmol/L (-2 to +3); PCO2 30.3 mmHg (35.0-45.0); PO2 64.8 mmHg (75.0-100.0); pH 7.492 (7.340-7.450)
--- NOTE | 2020-06-22 06:12 | NUR ---
ASSUMED CARE AT 1900H, ON VENT AT 40% AND TOLERATED. STILL WITH TACHYPNIA SOMETIMES. ON FENTANYL, VERSED, AND PRECEDEX DRIP. FALLOWED COMMANDS. NO DISTRESS. NODDED WHEN ASKED IF SHE'S IN PAIN, PRN PAIN MEDS GIVEN. CONTINUE MONITORING AND TOWARD GOALS. VERSED AT 4MG, FENTANYL AND PRECEDEX AT MAX DOSE.
[2020-06-22 06:29] LABS: ABSOLUTE LYMPHOCYTES 1.8 thou/uL (0.8-5.3); ABSOLUTE MONOCYTES 0.4 thou/uL (0.0-1.2); ABSOLUTE NEUTROPHILS 9.2 thou/uL (1.6-8.1); BASOPHILS 0.3 %; HEMATOCRIT 24.3 % (37.0-47.0); HEMOGLOBIN 8.4 gm/dL (12.0-15.0); LYMPHOCYTES 15.7 %; MCH 29.5 pg (26.0-34.0); MCHC 34.5 g/dL (28.0-37.0); MCV 85.4 fL (80.0-100.0); MONOCYTES 3.7 %; MPV 9.5 fl. (7.2-11.1); NUCLEATED RBCS 0 /100WBC; PLATELET COUNT* 147 thou/uL (150-400); POLYS 80.3 %; RBC 2.84 mil/uL (4.20-5.00); RDW-CV 15.3 % (10.5-14.5); WBC 11.4 thou/uL (4.0-11.0)
[2020-06-22 06:38] LABS: PROTIME 10.6 Seconds (9.20-11.50)
[2020-06-22 06:40] LABS: MAGNESIUM 1.8 mg/dL (1.8-2.4); PHOSPHORUS* 3.1 mg/dL (2.5-4.9)
[2020-06-22 06:48] LABS: ALBUMIN 1.8 g/dL (3.4-5.0); CALCIUM 7.4 mg/dL (8.5-10.1); CREATININE 0.6 mg/dL (0.6-1.3); POTASSIUM 3.9 mmol/L (3.5-5.1); TOTAL BILIRUBIN 0.6 mg/dL (<0.1-1.0); TOTAL PROTEIN 5.5 g/dL (6.4-8.2)
[2020-06-22 09:26] LABS: BE 1.8 mmol/L (-2 to +3); PCO2 31.2 mmHg (35.0-45.0); PO2 73.3 mmHg (75.0-100.0); pH 7.514 (7.340-7.450)
--- NOTE | 2020-06-22 10:39 | NUR ---
0730 ASSUMED CARE OF PATIENT. SEE DOCUMENTED ASSESSMENT. PT IS RESTLESS BUT ALERT. BP TRENDING DOWN. VERSED DRIP REDUCED.
--- NOTE | 2020-06-22 10:39 | NUR ---
0950 EXTUBATED AND OG REMOVED AFTER SUCCESSFUL TRIAL. OUT OF RESTRAINTS
--- NOTE | 2020-06-22 17:07 | NUR ---
PATIENT PROGRESSING TOWARDS GOALS. EXTUBATED HIS MORNING AND ON 4LPM HIGH FLOW CANNULA. ORIENTED BUT FORGETFUL AND ANXIOUS. HAS HAD SEVERAL STOOLS. REGLAN HELD. ARTERIAL LINE REMOVED. SWALLOW EVAL COMPLETED AND TOLERATING LIQUIDS. SISTER HAS VISITED.
[2020-06-23] VITALS (13 sets, daily range): BP systolic 133–151; BP diastolic 70–81
--- NOTE | 2020-06-23 04:40 | NUR ---
ASSUMED CARE AT 1900H, ON NC AT 4LPM AND WELL TOLERATED. SEEN ON BED LOOKS ANXIOUS, TACHYCARDIC AND WITH EPISODES OF TACHYPNIA. PT WAS FEVERISH, PRN TYLENOL GIVEN. PT WAS CONFUSED AND KEPT ON ASKING ME TO TELL THE DOCTOR TO TRANSER HER TO [place] FOR TUBE INSERTION TO HELP HER BREATH. ORIENT PT ALL THE TIME. COMPLAIN OF CHEST PAIN. EKG DONE, SINUS TACHY AND LBBB. TROPONIN NOT ELEVATED. EXPLAIN TO HER THAT HER CHEST PROBABLY FROM HER FREQUENT COUGHING. PRN MEDS FOR COUGH AND PAIN GIVEN. PT FINALLY SLEPT LATE THIS MORNING. CONTINUE MONITORING AND TOWARD GOALS.
[2020-06-23 05:57] LABS: HEMOGLOBIN 8.7 gm/dL (12.0-15.0); MCH 29.6 pg (26.0-34.0); MCHC 34.7 g/dL (28.0-37.0); MCV 85.4 fL (80.0-100.0); MPV 9.3 fl. (7.2-11.1); RBC 2.93 mil/uL (4.20-5.00); RDW-CV 15.1 % (10.5-14.5); WBC 10.9 thou/uL (4.0-11.0)
[2020-06-23 06:05] LABS: CALCIUM 7.8 mg/dL (8.5-10.1); CREATININE 0.6 mg/dL (0.6-1.3); POTASSIUM 3.1 mmol/L (3.5-5.1)
--- NOTE | 2020-06-23 12:16 | NUR ---
PT IS A/O X4 BUT FORGETFUL AND ANXIOUS.PRN ANXIETY MEDICATIONS GIVEN.REMAINS ON 4L HIGH FLOW NC.PT C/O OF GENERALIZED PAIN-MEDICATIONS GIVEN.PT C/O CRUSHING CHEST PAIN-PHYSICIAN NOTIFIED,STAT EKG COMPLETED WITH NO CHANGES NOTED.PT ADMITS IT COULD BE ANXIETY.PT HAD VISITOR (JOE) AT BEDSIDE-UPDATED ON PT CONDITION.PT STATES "SHE WANTS TO BE TRANSFERRED TO AND WANTS TRACH PLACED BECAUSE SHE THINKS SHE IS GOING TO ." NURSE TALKED WITH PT AND EXPLAINED SHE IS DOING GOOD AND DOES NOT REQUIRE A TRACH.CASE MANAGEMENT NOTIFIED OF TRANSFER REQUEST.PT DOWNGRADED TO TELE STATUS.PT TO TRANSFER TO ROOM 220.
--- NOTE | 2020-06-23 15:24 | NUR ---
ICU rounds: CM recieved call from nurse that Pt wants to transfer to , CM initiated transfer [phone]. Dr to contact transfer team. Pt tele status, moved to room 220.
[2020-06-23 17:39] LABS: CALCIUM 6.7 mg/dL (8.5-10.1); CREATININE 0.5 mg/dL (0.6-1.3); MAGNESIUM 1.8 mg/dL (1.8-2.4); POTASSIUM 3.2 mmol/L (3.5-5.1)
--- NOTE | 2020-06-23 17:42 | EKG ---
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
--- NOTE | 2020-06-23 17:45 | EKG ---
[place] [address] ELECTROCARDIOGRAM REPORT Name: ZHEN ROMANOLIS Room: [address] ADM IN .R.#: [id number] Admission: 06/12/20 Attend Phys: Lanre Cuevas, Discharge: Date of : 57 Date of Service: 06/23/20 1013 Report #: [id number] THIS REPORT FOR: //name// [facility] Test Date: 2020-06-23 Test Time: 10:13:12 Pat Name: SAUNDRA ROMANO Department: Room: [facility] Gender: F Gas Attendant: [facility] : 1955 Requested By: Jean Carlos Rodriguez Order Number: [id number] Courtney MD: Golden García Measurements Intervals [place] Rate: 104 P: 59 ME: 148 QRS: -12 QRSD: 143 T: 151 QT: 354 QTc: 466 Interpretive Statements Sinus tachycardia Left bundle branch block Compared to ECG 06/17/2020 05:19:17 Sinus bradycardia no longer present Electronically Signed On 06-23-2020 17:45:00 CDT by Golden García [email or web address] <ELECTRONICALLY SIGNED> By: Golden García MD, [facility] 06/23/20 1745 1013 1013 Golden García MD, [facility] /EPI
--- NOTE | 2020-06-23 18:40 | NUR ---
PT TRANSFERED FROM ICU TO ROOM 220. PT FOCUSED ON NEEDING TO BE TRACHED. PT EDUCATION AND REASSURANCE GIVEN. PRN PAIN AND NAUSEA MEDICATIONS GIVEN. O2 4LNC. SISTER AT BEDSIDE.
[2020-06-24 04:00] VITALS: BP 131/72
[2020-06-24 05:15] LABS: ABSOLUTE BASOPHILS 0.1 thou/uL (0.0-0.2); ABSOLUTE EOSINOPHILS 0.1 thou/uL (0.0-0.7); ABSOLUTE MONOCYTES 1.9 thou/uL (0.0-1.2); ABSOLUTE NEUTROPHILS 8.2 thou/uL (1.6-8.1); BASOPHILS 0.6 %; EOSINOPHILS 0.6 %; HEMATOCRIT 26.6 % (37.0-47.0); HEMOGLOBIN 9.2 gm/dL (12.0-15.0); LYMPHOCYTES 22.4 %; MCH 29.4 pg (26.0-34.0); MCHC 34.7 g/dL (28.0-37.0); MCV 84.9 fL (80.0-100.0); MONOCYTES 14.3 %; MPV 9.4 fl. (7.2-11.1); NUCLEATED RBCS 0 /100WBC; PLATELET COUNT* 236 thou/uL (150-400); POLYS 62.1 %; RBC 3.14 mil/uL (4.20-5.00); RDW-CV 15.5 % (10.5-14.5); WBC 13.2 thou/uL (4.0-11.0)
[2020-06-24 05:44] LABS: ALBUMIN 2.4 g/dL (3.4-5.0); CALCIUM 7.6 mg/dL (8.5-10.1); CREATININE 0.6 mg/dL (0.6-1.3); POTASSIUM 3.9 mmol/L (3.5-5.1); TOTAL BILIRUBIN 0.7 mg/dL (<0.1-1.0); TOTAL PROTEIN 6.1 g/dL (6.4-8.2)
--- NOTE | 2020-06-24 06:01 | NUR ---
Assumed pt's care this pm shift. Pt alert and oriented. Pt did exhibit some forgetfulness. Pt took meds whole per emar @ s. Pt given tylenol for fever. Helped but this am, fever back up to 100. Pt refused tylenol @ 0400. Pt is very fixated on getting a trach tube for breathing and also being transferred to a [facility] trauma hospital. Pt refused 0330 RT treatment, asking for her last rights. Pt voiced, that she needed the trach or she wont make it. Nursing notified H/S. H/S to see pt as soon as he can. Nursing encouraged pt to continue with care, as nursing saw that have initiated process of transferring pt out of the hospital per her request. 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 Pt was able tp relax and chat with nursing and ate half of orange jello and some ice. Pt seemed relaxed now. Not talking about transfering at this time. Fall precaution in place. Q2 turn. Pt had some loose BMs this shift. Will continue to monitor.
[2020-06-24 08:00] VITALS: BP 136/78
[2020-06-24 13:10] LABS: URINE BILIRUBIN NEGATIVE (Negative); URINE BLOOD NEGATIVE (Negative); URINE CLARITY CLEAR; URINE COLOR YELLOW; URINE GLUCOSE-RANDOM NEGATIVE (Negative); URINE KETONES TRACE (Negative); URINE LEUKOCYTES-REFLEX NEGATIVE (Negative); URINE NITRITE-REFLEX NEGATIVE (Negative); URINE PROTEIN NEGATIVE (Negative); URINE UROBILINOGEN 0.2 E.U./dl (0.2-1.0)
[2020-06-24 14:32] VITALS: BP 117/62
[2020-06-24 16:53] VITALS: BP 122/79
[2020-06-24 20:00] VITALS: BP 107/72
[2020-06-25 00:06] VITALS: BP 159/54
[2020-06-25 04:00] VITALS: BP 118/64
[2020-06-25 04:57] LABS: ABSOLUTE BASOPHILS 0.1 thou/uL (0.0-0.2); ABSOLUTE EOSINOPHILS 0.1 thou/uL (0.0-0.7); ABSOLUTE LYMPHOCYTES 3.1 thou/uL (0.8-5.3); ABSOLUTE MONOCYTES 2.4 thou/uL (0.0-1.2); ABSOLUTE NEUTROPHILS 8.3 thou/uL (1.6-8.1); BASOPHILS 0.7 %; EOSINOPHILS 0.4 %; HEMATOCRIT 25.2 % (37.0-47.0); HEMOGLOBIN 8.6 gm/dL (12.0-15.0); LYMPHOCYTES 22.4 %; MCH 29.2 pg (26.0-34.0); MCHC 34.1 g/dL (28.0-37.0); MCV 85.6 fL (80.0-100.0); MONOCYTES 17.4 %; NUCLEATED RBCS 0 /100WBC; PLATELET COUNT* 268 thou/uL (150-400); POLYS 59.1 %; RBC 2.94 mil/uL (4.20-5.00); RDW-CV 15.2 % (10.5-14.5); WBC 14.1 thou/uL (4.0-11.0)
[2020-06-25 06:03] LABS: ALBUMIN 2.5 g/dL (3.4-5.0); CREATININE 0.6 mg/dL (0.6-1.3); MAGNESIUM 1.8 mg/dL (1.8-2.4); POTASSIUM 3.5 mmol/L (3.5-5.1); TOTAL BILIRUBIN 0.6 mg/dL (<0.1-1.0); TOTAL PROTEIN 6.1 g/dL (6.4-8.2)
--- NOTE | 2020-06-25 06:42 | NUR ---
ASSESSMENT COMPLETED AT BEDSIDE, PLEASE REFER TO CHARTING FOR DETAILS. MEDICATIONS ADMINISTERED PER MAR, PT HAS C/O PAIN REQUIRING Q2H PRN PAIN MEDICATIONS FOR PAIN TO NECK. PT DID SLEEP FOR A FEW HOURS, WHEN SHE WOKE STATED SHE IS FEELING BETTER AND FEELS LIKE SHE WOULD LIKE TO TRY TO EAT TODAY. CURRENTLY IN BED WITH BED ALARM ON AND CALL LIGHT WITHIN REACH.
[2020-06-25 07:30] VITALS: BP 101/61
[2020-06-25] MEDS ORDERED: DESYREL150 MG PO (09:51)
[2020-06-25] MEDS ORDERED: BIOTIN10000 MC1 PO (10:00)
[2020-06-25] MEDS ORDERED: CALCIUM CITRAT1 EAC3 PO (10:01)
[2020-06-25] MEDS ORDERED: ZINC50 M1 PO (10:02)
[2020-06-25] MEDS ORDERED: B12 ACTIVE1000 MCG PO (10:03)
[2020-06-25 11:30] VITALS: BP 110/63
[2020-06-25 16:49] VITALS: BP 122/66
--- NOTE | 2020-06-25 17:06 | NUR ---
PATINET RESTING IN BED. UP WITH ASSISTX1 AND WALKER. AOX4. MEDICATION CHANGES FOR PAIN CONTROL EFFECTIVE WITH MULTIMODAL APPROACH. VAUGHN TO DRAIN WITH CLEAR YELLOW OUTPUT. HOURLY ROUDNIG COMPLETED FOR PATINET SAFETY
[2020-06-25 20:00] VITALS: BP 103/58
[2020-06-26] VITALS: BP 119/64
[2020-06-26 04:00] VITALS: BP 121/72
[2020-06-26 05:15] LABS: HEMATOCRIT 23.7 % (37.0-47.0); HEMOGLOBIN 8.1 gm/dL (12.0-15.0); MCH 29.6 pg (26.0-34.0); MCHC 34.3 g/dL (28.0-37.0); MCV 86.3 fL (80.0-100.0); MPV 9.1 fl. (7.2-11.1); RBC 2.75 mil/uL (4.20-5.00); RDW-CV 15.1 % (10.5-14.5); WBC 9.9 thou/uL (4.0-11.0)
--- NOTE | 2020-06-26 05:24 | NUR ---
ASSESSMENT COMPLETED AT BEDSIDE, PLEASE REFER TO CHARTING FOR DETAILS. MEDICATIONS ADMINISTERED PER MAR. HOURLY ROUNDING FOR PT SAFETY. C/O PAIN TO NECK TREATED WITH PRN MEDICATIONS. NO OTHER CONCERNS NOTED AT THIS TIME. CURRENTLY AWAKE IN BED WITH BED ALARM ON AND CALL LIGHT WITHIN REACH.
[2020-06-26 05:38] LABS: CALCIUM 7.9 mg/dL (8.5-10.1); CREATININE 0.6 mg/dL (0.6-1.3); MAGNESIUM 1.6 mg/dL (1.8-2.4); POTASSIUM 3.2 mmol/L (3.5-5.1)
[2020-06-26 08:00] VITALS: BP 121/60
--- NOTE | 2020-06-26 12:10 | NUR ---
Pt is going to likely need some rehab prior to dc home, per PT, Pt was dependent on 06/24, therepies to see. Pt is patient pay, does not qualify for [facility], updated Dr. PARSONS manager of broadcast content to check into options. Following.
[2020-06-26 17:57] VITALS: BP 104/69
[2020-06-26 20:00] VITALS: BP 102/49
--- NOTE | 2020-06-26 21:40 | NUR ---
INITAL ASSESMENT COMPLETED AT 1999. PT PLEASANT AND COOPERATIVE. DENIED PAIN OR DISCOMFORT AT THAT TIME. DISCONTINUED CENTRAL LINE PER ORDER GIVEN DURING DAY SHIFT. TIP SENT TO LAB FOR CULTURE. HS MEDS GIVEN PER EMAR. CALL LIGHT IN PLACE, BED ALARM ON, FREQUENT VISUAL CHECKS DONE.
[2020-06-27 04:00] VITALS: BP 104/55
[2020-06-27 05:00] LABS: HEMATOCRIT 24.7 % (37.0-47.0); HEMOGLOBIN 8.4 gm/dL (12.0-15.0); MCH 29.6 pg (26.0-34.0); MCHC 33.9 g/dL (28.0-37.0); MCV 87.2 fL (80.0-100.0); MPV 8.6 fl. (7.2-11.1); RBC 2.83 mil/uL (4.20-5.00); RDW-CV 15.5 % (10.5-14.5); WBC 9.6 thou/uL (4.0-11.0)
[2020-06-27 05:18] LABS: CALCIUM 8.4 mg/dL (8.5-10.1); CREATININE 0.7 mg/dL (0.6-1.3); MAGNESIUM 1.9 mg/dL (1.8-2.4); POTASSIUM 3.6 mmol/L (3.5-5.1)
[2020-06-27 07:30] VITALS: BP 103/63
[2020-06-27] MEDS ORDERED: OXYCODONE HCL 55 MG PO (09:34)
[2020-06-27] MEDS ORDERED: FLUCONAZOLE 10100 MG PO (09:34)
[2020-06-27 11:52] VITALS: BP 103/63
== END 2020-06-27 13:43 | disposition home or self-care (01) | DRG 870 ==
LOC: M.ERS 18:59 → M.TBA-ER 21:35 → M.ICU 21:35 → M.2W 06-23 13:09
PROVIDERS: Emergency Medicine; Internal Medicine; Internal Medicine Critical Care Medicine; Nurse Practitioner Family; Pediatrics; ADMIT Internal Medicine; ATTEND Internal Medicine
PROC: 05HY33Z Insertion of Infusion Device into Upper Vein, Percutaneous Approach (ICD-10-PCS; principal; 2020-06-12)
PROC: 0BH17EZ Insertion of Endotracheal Airway into Trachea, Via Natural or Artificial Opening (ICD-10-PCS; 2020-06-15)
PROC: 5A1955Z Respiratory Ventilation, Greater than 96 Consecutive Hours (ICD-10-PCS; 2020-06-15)
DX: A41.9 Sepsis, unspecified organism (principal); R65.21 Severe sepsis with septic shock; N17.0 Acute kidney failure with tubular necrosis; J96.01 Acute respiratory failure with hypoxia; J96.02 Acute respiratory failure with hypercapnia; J15.6 Pneumonia due to other Gram-negative bacteria; R04.2 Hemoptysis; E46 Unspecified protein-calorie malnutrition; B37.81 Candidal esophagitis; E87.0 Hyperosmolality and hypernatremia; K52.9 Noninfective gastroenteritis and colitis, unspecified; F41.9 Anxiety disorder, unspecified; D64.9 Anemia, unspecified; F32.9 Major depressive disorder, single episode, unspecified; F17.210 Nicotine dependence, cigarettes, uncomplicated; N30.91 Cystitis, unspecified with hematuria; K75.9 Inflammatory liver disease, unspecified; F41.1 Generalized anxiety disorder; E87.6 Hypokalemia; D69.6 Thrombocytopenia, unspecified; K76.89 Other specified diseases of liver; Z20.828 Contact with and (suspected) exposure to other viral communicable diseases; E16.2 Hypoglycemia, unspecified; Z68.31 Body mass index [BMI] 31.0-31.9, adult; Z88.1 Allergy status to other antibiotic agents; Z88.8 Allergy status to other drugs, medicaments and biological substances; Z90.49 Acquired absence of other specified parts of digestive tract; Z79.899 Other long term (current) drug therapy